=== PATIENT | male | born 1975 | race Caucasian/White ===

== ENCOUNTER 2016-12-05 07:50 | Emergency (ER) | payer OTHER, MEDICAID ==
[~2016-12-05] VITALS: Ht 170.2 cm; Wt 90.7 kg
[2016-12-05 07:55] VITALS: BP 150/86
--- NOTE | 2016-12-05 07:59 | NUR ---
Patient ambulated to bed 05.
--- NOTE | 2016-12-05 08:00 | NUR ---
PATIENT PRESENTS TO ED DUE TO CONGESTION/COUGH, FEVER X2 WEEKS. PT STATES TOOK TYLENOL . DENIES N/V/D; SKIN IS PINK/WARM/DRY; AAOX4 WITH EVEN AND STEADY GAIT; LUNGS CLEAR BL; HR EVEN AND REGULAR; PATIENT STATES PAIN OF 7/10 AT THIS TIME; PATIENT POSITIONED FOR COMFORT; HOB ELEVATED; BEDRAILS UP X2; BED DOWN. PT AAO,NO SOB NOTED AT THIS TIME, SKIN WARM TO TOUCH RESP. EVEN AND UNLABORED.DENIES SMOKING
--- NOTE | 2016-12-05 08:09 | NUR ---
XRAY AT BEDSIDE
[2016-12-05] MEDS ORDERED: PROMETH/CODEINE 6.25-10MG/5ML 5 ML UDC PO ONE (08:20)
--- NOTE | 2016-12-05 08:24 | NUR ---
DR. DEVI AT BEDSIDE
[2016-12-05] MEDS ORDERED: ALBUTEROL 0.083% 2.5 MG/3 ML NEBU INH ONE (08:30)
[2016-12-05] MEDS ORDERED: DEXAMETHASONE 4 MG/ML VIAL PO ONE (08:30)
--- NOTE | 2016-12-05 08:37 | NUR ---
RT at bedside to give breathing treatment.
--- NOTE | 2016-12-05 08:39 | NUR ---
ADMITTING DX: CONGESTION DENIES ASTHMA/COPD LOC AWAKE AND ALERT RESPONSIVE TO INVESTIGATOR UTILITY BILL COMPLAINTS VERBAL COMMANDS IN [facility] POSITION EDUCATION PROVIDED TO PATIENT WITH ACKNOWLEDGEMENT ON HHN THERAPY AND RESPIRATORY DRUG [facility] THERAPY GIVEN ORDERED ENCOURAGED DEEP BREATHING AND COUGH DURING THERAPY TOLERATED HHN THERAPY WELL WITHOUT INCIDENT
--- NOTE | 2016-12-05 09:37 | NUR ---
Patient discharged with v/s stable. Written and verbal after care instructions given and explained. Patient alert, oriented and verbalized understanding of instructions. Ambulatory with steady gait. All questions addressed prior to discharge. ID band removed. Patient advised to follow up with PMD. Rx of PHENERGAN WITH CODEINE,AZITHROMYCIN AND ALBUTEROL given. Patient educated on indication of medication including possible reaction and side effects. Opportunity to ask questions provided and answered.
[2016-12-05 09:38] VITALS: BP 136/75
== END 2016-12-05 09:37 | disposition home or self-care (01) ==
LOC: MED 07:59
DX: J45.909 Unspecified asthma, uncomplicated (principal)
CPT/HCPCS: 71010; 93005; 94640; 99284; J1100; J7613